=== PATIENT | female | born 1970 | race Caucasian/White ===

== ENCOUNTER 2016-08-19 22:48 | Observation (INO) | payer SELFPAY ==
[2016-08-19] MEDS ORDERED: RX-NITROGLYCERIN 0.4 MG TAB BTL 25'S SL PRN (23:00)
[2016-08-19] MEDS ORDERED: LEVETIRACETAM INJECTION 500 MG in NS (IVPB) 50 ML IV ONE (23:30)
[2016-08-20] MEDS ORDERED: NS IV 1000 ML 1,000 ML IV ONE (00:31)
[2016-08-20] MEDS ORDERED: LORazepam INJ 2 MG/ML (ATIVAN) VIAL IVP PRN (01:45)
[2016-08-20] MEDS ORDERED: morphine INJ 4 MG/ML 1 ML (VIAL/SYRINGE) IVP PRN (01:45)
[2016-08-20] MEDS ORDERED: NITROGLYCERIN SUBLINGUAL 0.4 MG TAB (NITROSTAT) SL PRN (01:45)
[2016-08-20] MEDS ORDERED: carBAMazepine 200 MG (TEGretol) TAB PO SCH ×2 (01:45→21:00)
[2016-08-20] MEDS ORDERED: cefTRIAXone INJECTION 1,000 MG in NS (IVPB) 50 ML IV ONE (01:45)
[2016-08-20] MEDS ORDERED: cefTRIAXone 1 GM (ROCEPHIN) VIAL ONE (01:53)
[2016-08-20] MEDS ORDERED: NS (IVPB) 50 ML ONE (01:54)
[2016-08-20] MEDS: NS IV 1000 ML 1,000 ML IV SCH ×3 (02:02→20:39)
[2016-08-20] MEDS ORDERED: CARB200T PO ×2 (10:05→10:52)
[2016-08-20] MEDS ORDERED: LISI-552 PO ×2 (10:05→10:52)
[2016-08-20] MEDS: carBAMazepine 200 MG (TEGretol) TAB PO SCH (20:24)
[2016-08-20] MEDS ORDERED: cefTRIAXone INJECTION 1,000 MG in NS (IVPB) 50 ML IV SCH (21:00)
[2016-08-21] MEDS: NS IV 1000 ML 1,000 ML IV SCH (08:00)
[2016-08-21] MEDS ORDERED: REGADENOSON 0.4 MG/5 ML SYR (LEXISCAN) IV ONE ×2 (08:57→09:45)
[2016-08-21] MEDS ORDERED: lisINopril 20 MG (ZESTRIL) TAB PO SCH (09:00)
[2016-08-21] MEDS: carBAMazepine 200 MG (TEGretol) TAB PO SCH (11:10)
== END 2016-08-21 15:15 | disposition home or self-care (01) ==
DX: R07.9 Chest pain, unspecified (principal); G40.909 Epilepsy, unspecified, not intractable, without status epilepticus; E86.0 Dehydration; N30.91 Cystitis, unspecified with hematuria; M54.2 Cervicalgia; I10 Essential (primary) hypertension; E78.00 Pure hypercholesterolemia, unspecified; I25.2 Old myocardial infarction; I25.10 Atherosclerotic heart disease of native coronary artery without angina pectoris; F17.210 Nicotine dependence, cigarettes, uncomplicated; Z79.899 Other long term (current) drug therapy; Z91.14 Patient's other noncompliance with medication regimen

== ENCOUNTER 2016-11-21 16:46 | Emergency (ER) | payer MEDICAID, OTHER ==
[~2016-11-21] VITALS: Ht 162.6 cm; Wt 90.7 kg
[~2016-11-21 16:46] MED LIST: CARB200T PO; LISI-552 PO
--- NOTE | 2016-11-21 16:57 | ED Lower Extremity ---
General Chief Complaint: Lower Extremity Stated Complaint: L FOOT INJ Source: patient Exam Limitations: no limitations History of Present Illness Time seen by provider: 16:55 Initial Comments To ER with pain to the left foot after stepping it this morning. She tripped over her roommate's cell phone and in an attempt not to fall accidentally stubbed her foot. Pain is over the third fourth and fifth MTP joints laterally. Onset: this morning Severity: mild Pain/Injury Location: left foot Method of Injury: direct blow Modifying Factors: Worse With Movement Allergies and Home Medications Allergies Coded Allergies: codeine (Verified Adverse Reaction, Intermediate, swelling, 08/19/16) Home Medications Carbamazepine 200 Mg Tablet, 200 MG PO BID, #60 Prescribed by: MONTY SRIVASTAVA on 08/20/16 1052 Lisinopril 20 Mg Tablet, 20 MG PO DAILY, #30 Prescribed by: MONTY SRIVASTAVA on 08/20/16 1052 Constitutional: see HPI EENTM: see HPI Respiratory: no symptoms reported Cardiovascular: no symptoms reported Musculoskeletal: see HPI Skin: no symptoms reported Psychiatric/Neurological: No Symptoms Reported Past Eansnut-Glfzyg-Zgztda Hx Patient Social History Type Used: Cigarettes Recent Foreign Travel: No Contact w/Someone Who Travel: No Recent Hopitalizations: No Seasonal Allergies Seasonal Allergies: No Surgeries History of Surgeries: Yes Surgeries: Section, Gallbladder Respiratory History of Respiratory Disorde: No Cardiovascular History of Cardiac Disorders: Yes Cardiac Disorders: Heart Attack, Hypertension Neurological History of Neurological Disord: Yes Neurological Disorders: Seizure Disorder Reproductive System [employer]IST[employer] History: Menopausal Genitourinary History of Genitourinary Disor: No Gastrointestinal History of Gastrointestinal Di: Yes (Hep C) Gastrointestinal Disorders: Hepatitis Musculoskeletal History of Musculoskeletal Dis: No Endocrine History of Endocrine Disorders: No HEENT History of HEENT Disorders: No Cancer History of Cancer: No Psychosocial History of Psychiatric Problem: Yes (history of overdose on crack cocaine) Integumentary History of Skin or Integumenta: No Physical Exam Vital Signs Vital Sign - Last 12Hours 11/21/16 16:54 Temp 98.0 Pulse 83 Resp 18 B/P (MAP) 125/74 Pulse Ox 99 Capillary Refill : General Appearance: WD/WN, no apparent distress HEENT: PERRL/EOMI, normal ENT inspection Neck: non-tender, full range of motion Respiratory: normal breath sounds, no respiratory distress, no accessory muscle use Gastrointestinal: non tender, soft Hips: bilateral hip non-tender, bilateral hip normal inspection, bilateral hip normal range of motion Legs: bilateral leg non-tender, bilateral leg normal inspection, bilateral leg normal range of motion Knees: bilateral knee non-tender, bilateral knee normal inspection, bilateral knee normal range of motion Ankles: bilateral ankle non-tender, bilateral ankle normal inspection, bilateral ankle normal range of motion Feet: left foot pain (over the third fourth and fifth MTP joints), left foot soft tissue tenderness, left foot other (there is no swelling ecchymosis or abrasion) Skin: normal color, warm/dry Progress/Results/Core Measures Results/Orders My Orders Orders - VASQUEZ AVALOS APRN Foot, Left, 3 Views (11/21/16 16:55) Vital Signs/I&O Vital Sign - Last 12Hours 11/21/16 16:54 Temp 98.0 Pulse 83 Resp 18 B/P (MAP) 125/74 Pulse Ox 99 Departure Impression Impression: Primary Impression: Contusion of foot Disposition: 01 HOME, SELF-CARE Condition: Stable Departure-Patient Inst. Decision time for Depature: 17:25 Referrals: [facility] (PCP/Family) Primary Care Physician Patient Instructions: Contusion (DC) Add. Discharge Instructions: 1. Use ibuprofen for pain control 2. Return to ER for any concerns 3. All discharge instructions reviewed with patient and/or family. Voiced understanding. VASQUEZ AVALOS APRN Nov 21, 2016 16:57
--- NOTE | 2016-11-21 17:21 | Diagnostic Imaging Report ---
INDICATION: Foot pain, stubbing injury, third through fifth toe pain. EXAMINATION: Three views of the left foot were obtained. FINDINGS: Some soft tissue calcifications along the lateral margin of the third MTP. No fracture or erosion. No dislocation. IMPRESSION: Some chronic soft tissue calcifications at the level of the third MTP. No erosive element, fracture or dislocation however. Dictated by: Dictated on workstation # [id number]
[2016-11-21 17:30] VITALS: BP 125/74
== END 2016-11-21 17:30 | disposition home or self-care (01) ==
LOC: EDUNIT# 16:46 → ER 16:48
DX: S90.32XA Contusion of left foot, initial encounter (principal); I25.2 Old myocardial infarction; I10 Essential (primary) hypertension; G40.909 Epilepsy, unspecified, not intractable, without status epilepticus; B19.20 Unspecified viral hepatitis C without hepatic coma; Z87.59 Personal history of other complications of pregnancy, childbirth and the puerperium; W22.8XXA Striking against or struck by other objects, initial encounter
CPT/HCPCS: 73630; 99283